=== PATIENT | female | born 1990 | race Caucasian/White ===

== ENCOUNTER 2020-05-13 12:39 | Emergency (ER) | payer OTHER ==
[2020-05-13] MEDS ORDERED: ACETAMINOPHEN 325 MG TAB PO ONE (12:57)
--- NOTE | 2020-05-13 13:00 | ED.PDOC ---
History of Present Illness - General Chief Complaint: Fever Stated Complaint: body aches,fever Time Seen by Provider: 05/13/20 12:56 Additional Information: Patient is a 30-year-old female who presents to the ED via law enforcement with chief complaint of medical clearance. Patient was apprehended today and going through intake patient was noted to have a low-grade fever and was sent to the ED for medical clearance and to rule out COVID. Patient indicates that for the past 2 to 3 days she has had diffuse muscle aches and fatigue with some nausea. She also reports slightly bloody urine which is new for her. Patient denies fever, chills, chest pain, shortness of breath, vomiting, abdominal pain. She indicates she is an otherwise healthy individual. - History of Present Illness Allergies/Adverse Reactions: Allergies Amoxicillin Allergy (Verified 04/02/16 07:43) Erythromycin Allergy (Verified 04/02/16 07:43) Penicillins Adverse Reaction (Severe, Verified 02/26/14 21:54) Anaphylaxis Home Medications: Ambulatory Orders Metronidazole 500 mg PO TID #30 tab 04/02/16 Sulfa/Trimeth 800/160 (Ds) Tab [Bactrim DS Tab] 1 ea PO BID #20 tab 04/02/16 Sulfa/Trimeth 800/160 (Ds) Tab [Bactrim DS] 1 tablet PO BID #10 tab 05/13/20 Review of Systems - Review of Systems Constitutional: States: malaise. Denies: chills, fever EENTM: States: no symptoms reported Respiratory: States: no symptoms reported. Denies: cough, short of breath Cardiology: States: no symptoms reported. Denies: chest pain, palpitations Gastrointestinal/Abdominal: States: nausea. Denies: abdominal pain, diarrhea, vomiting Genitourinary: States: hematuria. Denies: dysuria, frequency Musculoskeletal: States: muscle pain Skin: Denies: rash Neurological: States: no symptoms reported All other Systems: Reviewed and Negative Past Medical History (General) - Patient Medical History Hx Seizures: No Hx Stroke: No Hx Dementia: No Hx Asthma: No Hx of COPD: No Hx Cardiac Disorders: Yes - Atrial fib Hx Congestive Heart Failure: No Hx Pacemaker: No Hx Hypertension: No Hx Thyroid Disease: No Hx Diabetes: No Hx Gastroesophageal Reflux: No Hx Renal Disease: No Hx Cancer: No Hx of HIV: No Hx Hepatitis C: No Hx MRSA: No Surgical History: tonsillectomy - Vaccination History Hx Tetanus, Diphtheria Vaccination: No Hx Influenza Vaccination: No Hx Pneumococcal Vaccination: No - Social History Hx Tobacco Use: Yes Hx Chewing Tobacco Use: No Hx Alcohol Use: No Hx Substance Use: No Hx Substance Use Treatment: No Hx Depression: No Hx Physical Abuse: No Hx Emotional Abuse: No Hx Suspected Abuse: No - Female History Patient is a Female of Child Bearing Age (10 -59 yrs old): Yes Hx Last Menstrual Period: 02/10/14 Patient : No Family Medical History - Family History Mother Family History: No Known Physical Exam - Physical Exam General Appearance: Alert, Comfortable, No apparent distress, Well Developed, Well Nourished Ears, Nose, Throat: normal ENT inspection, normal pharynx Neck: supple, normal inspection Respiratory: chest non-tender, lungs clear, normal breath sounds, no respiratory distress, no accessory muscle use Cardiovascular/Chest: normal peripheral pulses, regular rate, rhythm, tachycardia Gastrointestinal/Abdominal: non tender, soft Back Exam: no CVA tenderness Extremity: normal range of motion, non-tender, normal inspection Neurologic: speech and hearing director II-XII nml as tested, no motor/sensory deficits, alert, normal mood/affect, oriented x 3 Skin Exam: normal color, warm/dry Progress - Progress Progress: 05/13/20 13:01 Differential diagnosis includes but is not limited to COVID, UTI, viral illness, pneumonia. 05/13/20 15:09 Patient is COVID negative. Her urine is suggestive of an early UTI with hematuria, will DC with Bactrim and I discussed with patient following up with a PCP to evaluate for resolution of hematuria. Vital signs stable, patient is NAD and looks clinically well and I believe is safe for discharge with outpatient follow-up. Follow-up instructions, discharge instructions and return to ED precautions discussed with patient. Patient voices understanding and willingness to comply with instructions. All laboratory and/ or radiology results have been discussed with the patient, and all questions answered. Patient is happy with plan. Departure - Departure Clinical Impression: UTI (urinary tract infection) Qualifiers: Urinary tract infection type: site unspecified Hematuria presence: with hematuria Qualified Code(s): N39.0 - Urinary tract infection, site not specified Time of Disposition: 15:12 Disposition: Discharge to Home or Self Care Condition: Good Departure Forms: ED Discharge - Pt. Copy, Patient Portal Self Enrollment Instructions: Urinary Tract Infection, Adult (DC) Referrals: DAPHNE FLORES MD [Active Staff] - 1 Week Prescriptions: Sulfa/Trimeth 800/160 (Ds) Tab [Bactrim DS] 1 tablet PO BID #10 tab Home Medications: Ambulatory Orders Metronidazole 500 mg PO TID #30 tab 04/02/16 Sulfa/Trimeth 800/160 (Ds) Tab [Bactrim DS Tab] 1 ea PO BID #20 tab 04/02/16 Sulfa/Trimeth 800/160 (Ds) Tab [Bactrim DS] 1 tablet PO BID #10 tab 05/13/20
--- NOTE | 2020-05-13 13:18 | RAD ---
EXAM: Chest,1 View CLINICAL INDICATION: Shortness of breath COMPARISON: There is no previous study for comparison. FINDINGS: A single view of the chest was obtained. The heart size is normal. The pulmonary vascularity is unremarkable. The lungs are clear. There is no consolidation, infiltrate, pleural effusion, or pneumothorax. IMPRESSION: Normal chest radiograph. Electronically signed by: Edson Hayward MD 05/13/2020 1:17 PM CDT
[2020-05-13] MEDS ORDERED: SULFA/TRIMETH 800/160 (DS) TAB 1 EA TAB PO ONE (15:14)
[2020-05-13 15:26] VITALS: BP 134/72; TEMP 98.1; O2SAT 100
== END 2020-05-13 15:25 | disposition home or self-care (01) ==
LOC: ER 12:39
DX: N39.0 Urinary tract infection, site not specified (principal); I48.91 Unspecified atrial fibrillation; Z20.828 Contact with and (suspected) exposure to other viral communicable diseases; Z79.899 Other long term (current) drug therapy; Z88.1 Allergy status to other antibiotic agents; Z88.0 Allergy status to penicillin